=== PATIENT | male | born 1975 | race Caucasian/White ===

== ENCOUNTER 2016-07-25 10:26 | Emergency (ER) | payer OTHER, BC ==
--- NOTE | 2016-07-25 12:31 | ED NURSING NOTES ---
Clinical Report - Nurses [facility] [address] [place] [address] 07/25/2016 10:32 Patient: LEX MEDEROS TRIAGE Triage time 10:36. Acuity: LEVEL 4. Chief Complaint: INJURY TO THE LEFT LITTLE FINGER. Alert. No acute distress. MELECIO COMA SCORE: Melecio Coma Scale: 15- eyes open spontaneously (4); best verbal response- oriented x 4 (5); best motor response- obeys commands (6). --10:44 Shagufta Perkins R.N. 10:36 07/25/16. BP: 148/83. HR: 73. RR: 16. O2 saturation: 98% on room air. Temp: 97.6 F. Pain level now: 03/08. --10:44 Shagufta Perkins R.N. Weight: 90.7 kg stated. Height/Length: 77 inches Per Patient. BMI: 23.7. --10:39 Shagufta Perkins R.N. Medications Albuterol Sulfate HFA Inhalation. --10:37 Shagufta Perkins R.N. Flonase Nasal. --10:37 Shagufta Perkins R.N. Ibuprofen Oral. --10:37 Shagufta Perkins R.N. Medication/allergy information source: the patient. --10:44 Shagufta Perkins R.N. Allergies Theophylline. --10:38 Shagufta Perkins R.N. Vancomycin. --10:38 Shagufta Perkins R.N. History Arrived by private vehicle. Historian: patient. Unaccompanied. Primary physician (in [place]). The patient sustained a laceration from a sharp edge (on a boat). PAST MEDICAL HX: Tetanus status: more than 5 years ago. SOCIAL HX: Never smoker. Regular alcohol use. No drug use. FALL RISK ASSESSMENT: Fall risk assessment completed. No fall risk identified. FUNCTIONAL ASSESSMENT: Functional assessment: no impairments noted. LEARNING NEEDS ASSESSMENT: The learning needs assessment revealed no barriers. --10:44 Shagufta Perkins R.N. PROBLEMS: Asthma. Allergies. --10:39 Shagufta Perkins R.N. ADDITIONAL SURGERIES: Knee Surgery. Repair of chest. Wrist. --10:39 Shagufta Perkins R.N. Assessment GENERAL / NEURO / PSYCH: Alert. Oriented X 4. Appears in no acute distress. Patient appears calm and cooperative. RESPIRATORY: Respirations not labored. SKIN: Skin is warm and dry. --10:44 Shagufta Perkins R.N. Interventions ID and allergy band on patient. To treatment room. --10:44 Shagufta Perkins R.N. PHYSICAL ASSESSMENT 10:47 07/25/16. Ambulatory to room. GENERAL / NEURO / PSYCH: Oriented X 4. Alert. Appears in no acute distress. SKIN: Skin is warm and dry. Laceration; (per pt report). ( bleeding controlled with bandaid). --10:47 Shagufta Perkins R.N. NURSING PROGRESS NOTES 10:47 07/25/16. Call light placed in reach. Side rails up x 1. Bed placed in lowest position. Brakes of bed on. --10:47 Shagufta Perkins R.N. 12:28 07/25/16. Wound cleansed with sterile saline. --12:28 Shagufta Perkins R.N. 12:55. WOUND REPAIR: Preparation: suture tray set-up. Procedure: wound repaired with sutures. Post-procedure: he was stable, no complications, bleeding controlled and dressing applied. ( dressed with telfa pad and luis as directed by PA). --14:17 Shagufta Perkins R.N. 12:55. The patient is calm and resting quietly. Overall patient status is improved- he states feels better. GENERAL / NEURO / PSYCH: Alert. Oriented X 4. RESPIRATORY: No respiratory distress. SKIN: Skin is warm and dry. --14:18 Shagufta Perkins R.N. DISPOSITION / DISCHARGE Departure time: 1255. Condition at departure: improved and stable. No learning barriers present. Discharge instructions provided and reviewed with the patient. Reviewed medication(s). Prescription(s) given to the patient. Patient verbalized understanding. Written instructions provided in [place]. The patient was discharged home and unaccompanied at time of discharge. He left the Emergency Department ambulatory and via private vehicle. FALL RISK ASSESSMENT: Fall risk assessment completed. No fall risk identified. --13:17 Shagufta Perkins R.N. 13:16 07/25/16. BP: 139/80. HR: 50. RR: 16. O2 saturation: 99% on room air. Pain level now: 0/10. --13:17 Shagufta Perkins R.N. suture pack x1. --14:18 Shagufta Perkins R.N. Locked/Released at 07/25/2016 14:18 by Shagufta Perkins R.N.
--- NOTE | 2016-07-25 12:31 | ED CLINICAL REPORT ---
Clinical Report - Physicians/Mid Levels [facility] [address] [place] [address] 07/25/2016 10:32 [id number] Time Seen: 15:42 Jul 25 2016. Arrived- By private vehicle. Historian- patient. HISTORY OF PRESENT ILLNESS Chief Complaint: Injury to the left 5th (little) finger. No amputation noted. The injury happened just prior to arrival. Occurred at home. Patient is experiencing mild pain. ( Patient sustained a laceration last night from a sharp edge of a boat. patient reports bandage was placed on the area, however today he is concerned as he has to attend work, and there is a flap-like laceration present on his left fifth digit. Patient is right-hand dominant. 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 REVIEW OF SYSTEMS All systems otherwise negative, except as recorded above. PAST HISTORY The patient's dominant hand is the right. He has not had a prior injury to the same area. Tetanus immunization status is up-to-date. SOCIAL HISTORY Never smoker. Alcohol use. No drug use. ADDITIONAL NOTES The nursing notes have been reviewed. PHYSICAL EXAM Vital Signs: 07/25/2016 10:36 BP: 148/83. HR: 73. RR: 16. O2 saturation: 98%. Temp: 97.6 F. Pain level now: 1/10. Appearance: Alert. Head: Head atraumatic. Neck: Normal inspection. Neck supple. CVS: Normal heart rate and rhythm. Heart sounds normal. Respiratory: No respiratory distress. Breath sounds normal. Skin: Skin warm. Extremities: Left little finger: (ulnar lateral lac 1.5 cm , full distal rom/ flap like, no neurovascular compromise, no fb, no bleeding, no surrounding erythema, good flexion/ extension distally). Tip of left little finger: No tenderness or swelling. Soft tissue tenderness present. No bony tenderness. No signs of infection present. Neuro, Vascular and Tendons: Vascular status intact. Motor intact. Neuro: Oriented X 3. PROGRESS AND PROCEDURES Laceration Repair: Time: 1240. Location: (left 5th digit). Time-out completed immediately before the procedure. Length: 1.5cm. Complexity: simple (local anesthesia used and sutured). Wound depth/shape- curved and flap-like and involving fascia. Wound is clean. No sensory deficit or motor deficit distally. Anesthesia provided by digital block using 0.25% Marcaine. Wound explored, cleansed and irrigated. Subcutaneous closure: interrupted 5-0 (7, non absorb). Post-procedure: he is stable and there are no complications. Bleeding is controlled and neuro-vascular status is intact distal to the wound. Dressing applied. Tetanus immunization up-to-date. Course of Care: Patient with a laceration from a sharp object, no direct trauma, which was forceful in nature, suspicion for fracture is low. Patient with no signs of secondary infectious process. Patient with no signs of tendon or neurovascular compromise. Laceration repaired. Patient stable. To f/u outpatient as needed. 07/25/2016 13:16 BP: 139/80. HR: 50. RR: 16. O2 saturation: 99%. Pain level now: 0/10. Patient is stable. Symptoms better. Patient/family counseled. Disposition: Discharged. CLINICAL IMPRESSION Single deep laceration to the left little finger. INSTRUCTIONS Apply ice. Elevate affected areas above chest level. Protect wound and keep wound area clean. Apply bacitracin twice daily. Sutures should be removed in six days. OTC Medications: Take OTC medications according to label instructions. Available over the counter. Acetaminophen (available over the counter): take according to label instructions. Motrin (available over the counter): take according to label instructions. Follow-up: Follow up with your doctor in six days. (Electronically signed by Lisette Galeas P.A.-C 07/25/2016 15:46)
--- NOTE | 2016-07-25 12:31 | ED NURSING NOTES ---
Clinical Report - Nurses [facility] [address] [place] [address] 07/25/2016 10:32 Patient: LEX MEDEROS TRIAGE Triage time 10:36. Acuity: LEVEL 4. Chief Complaint: INJURY TO THE LEFT LITTLE FINGER. Alert. No acute distress. MELECIO COMA SCORE: Melecio Coma Scale: 15- eyes open spontaneously (4); best verbal response- oriented x 4 (5); best motor response- obeys commands (6). --10:44 Shagufta Perkins R.N. 10:36 07/25/16. BP: 148/83. HR: 73. RR: 16. O2 saturation: 98% on room air. Temp: 97.6 F. Pain level now: 03/08. --10:44 Shagufta Perkins R.N. Weight: 90.7 kg stated. Height/Length: 77 inches Per Patient. BMI: 23.7. --10:39 Shagufta Perkins R.N. Medications Albuterol Sulfate HFA Inhalation. --10:37 Shagufta Perkins R.N. Flonase Nasal. --10:37 Shagufta Perkins R.N. Ibuprofen Oral. --10:37 Shagufta Perkins R.N. Medication/allergy information source: the patient. --10:44 Shagufta Perkins R.N. Allergies Theophylline. --10:38 Shagufta Perkins R.N. Vancomycin. --10:38 Shagufta Perkins R.N. History Arrived by private vehicle. Historian: patient. Unaccompanied. Primary physician (in [place]). The patient sustained a laceration from a sharp edge (on a boat). PAST MEDICAL HX: Tetanus status: more than 5 years ago. SOCIAL HX: Never smoker. Regular alcohol use. No drug use. FALL RISK ASSESSMENT: Fall risk assessment completed. No fall risk identified. FUNCTIONAL ASSESSMENT: Functional assessment: no impairments noted. LEARNING NEEDS ASSESSMENT: The learning needs assessment revealed no barriers. --10:44 Shagufta Perkins R.N. PROBLEMS: Asthma. Allergies. --10:39 Shagufta Perkins R.N. ADDITIONAL SURGERIES: Knee Surgery. Repair of chest. Wrist. --10:39 Shagufta Perkins R.N. Assessment GENERAL / NEURO / PSYCH: Alert. Oriented X 4. Appears in no acute distress. Patient appears calm and cooperative. RESPIRATORY: Respirations not labored. SKIN: Skin is warm and dry. --10:44 Shagufta Perkins R.N. Interventions ID and allergy band on patient. To treatment room. --10:44 Shagufta Perkins R.N. PHYSICAL ASSESSMENT 10:47 07/25/16. Ambulatory to room. GENERAL / NEURO / PSYCH: Oriented X 4. Alert. Appears in no acute distress. SKIN: Skin is warm and dry. Laceration; (per pt report). ( bleeding controlled with bandaid). --10:47 Shagufta Perkins R.N. NURSING PROGRESS NOTES 10:47 07/25/16. Call light placed in reach. Side rails up x 1. Bed placed in lowest position. Brakes of bed on. --10:47 Shagufta Perkins R.N. 12:28 07/25/16. Wound cleansed with sterile saline. --12:28 Shagufta Perkins R.N. 12:55. WOUND REPAIR: Preparation: suture tray set-up. Procedure: wound repaired with sutures. Post-procedure: he was stable, no complications, bleeding controlled and dressing applied. ( dressed with telfa pad and luis as directed by PA). --14:17 Shagufta Perkins R.N. 12:55. The patient is calm and resting quietly. Overall patient status is improved- he states feels better. GENERAL / NEURO / PSYCH: Alert. Oriented X 4. RESPIRATORY: No respiratory distress. SKIN: Skin is warm and dry. --14:18 Shagufta Perkins R.N. DISPOSITION / DISCHARGE Departure time: 1255. Condition at departure: improved and stable. No learning barriers present. Discharge instructions provided and reviewed with the patient. Reviewed medication(s). Prescription(s) given to the patient. Patient verbalized understanding. Written instructions provided in [place]. The patient was discharged home and unaccompanied at time of discharge. He left the Emergency Department ambulatory and via private vehicle. FALL RISK ASSESSMENT: Fall risk assessment completed. No fall risk identified. --13:17 Shagufta Perkins R.N. 13:16 07/25/16. BP: 139/80. HR: 50. RR: 16. O2 saturation: 99% on room air. Pain level now: 0/10. --13:17 Shagufta Perkins R.N. suture pack x1. --14:18 Shagufta Perkins R.N. Locked/Released at 07/25/2016 14:18 by Shagufta Perkins R.N.
--- NOTE | 2016-07-25 15:47 | ED MED RECONCILIATION SUMMARY ---
Patient: LEX MEDEROS Medication Reconciliation Report [facility] VisitID: [id number] [address] [place] [address] 41y, M Registration Date/Time: 07/25/2016 Weight: 90.7 kg Height/Length: 77 in. BMI: 23.7 ALLERGIES: Theophylline, Vancomycin The patient's Home Medications are listed below: THE FOLLOWING MEDICATIONS NEED TO BE RECONCILED: Albuterol Sulfate HFA Inhalation Flonase Nasal Ibuprofen Oral The source(s) of the original Home Medication information: patient The following Medications were given to the patient in the Emergency Department: None. The following Medications were prescribed to the patient: Take OTC medications according to label instructions. Available over the counter. -- Lisette Galeas, P.A.-C Acetaminophen (available over the counter): take according to label instructions. -- Lisette Galeas, P.A.-C Motrin (available over the counter): take according to label instructions. -- Lisette Galeas, P.A.-C
--- NOTE | 2016-07-25 15:47 | ED MED RECONCILIATION SUMMARY ---
Patient: LEX MEDEROS Medication Reconciliation Report [facility] VisitID: [id number] [address] [place] [address] 41y, M Registration Date/Time: 07/25/2016 Weight: 90.7 kg Height/Length: 77 in. BMI: 23.7 ALLERGIES: Theophylline, Vancomycin The patient's Home Medications are listed below: THE FOLLOWING MEDICATIONS NEED TO BE RECONCILED: Albuterol Sulfate HFA Inhalation Flonase Nasal Ibuprofen Oral The source(s) of the original Home Medication information: patient The following Medications were given to the patient in the Emergency Department: None. The following Medications were prescribed to the patient: Take OTC medications according to label instructions. Available over the counter. -- Lisette Galeas, P.A.-C Acetaminophen (available over the counter): take according to label instructions. -- Lisette Galeas, P.A.-C Motrin (available over the counter): take according to label instructions. -- Lisette Galeas, P.A.-C
--- NOTE | 2016-07-25 15:47 | ED MAR SUMMARY ---
..... Medication Administration Record [facility] [address], [place] [id number] Patient: LEX MEDEROS Visit ID: [id number] 41y, M Weight: 90.7 kg Height/Length: 77 in BMI: 23.7 ALLERGIES: Vancomycin, Theophylline
--- NOTE | 2016-07-25 15:47 | ED MAR SUMMARY ---
..... Medication Administration Record [facility] [address] [place], [place] [id number] Patient: LEX MEDEROS Visit ID: [id number] 41y, M Weight: 90.7 kg Height/Length: 77 in BMI: 23.7 ALLERGIES: Vancomycin, Theophylline
--- NOTE | 2016-07-25 15:47 | ED DISCHARGE INSTRUCTIONS ---
Patient: LEX MEDEROS General Instructions [facility] VisitID: [id number] [place] [address] 41y, M Registration Date/Time: 07/25/2016 Single deep laceration to the left little finger. INSTRUCTIONS Apply ice. Elevate affected areas above chest level. Protect wound and keep wound area clean. Apply bacitracin twice daily. Sutures should be removed in six days. OTC Medications: Take OTC medications according to label instructions. Available over the counter. Acetaminophen (available over the counter): take according to label instructions. Motrin (available over the counter): take according to label instructions. Follow-up: Follow up with your doctor in six days. ADDITIONAL INFORMATION Laceration, Extremity (Sutures, [place], Or Tape) A laceration is a cut through the skin. This will usually require stitches (sutures) or rasta if it is deep. Minor cuts may be treated with surgical tape closures. Home care The following guidelines will help you care for your laceration at home: Keep the wound clean and dry. If a bandage was applied and it becomes wet or dirty, replace it. Otherwise, leave it in place for the first 24 hours, then change it once a day or as directed. If stitches or rasta were used, clean the wound daily: After removing the bandage, wash the area with soap and water. Use a wet cotton swab to loosen and remove any blood or crust that forms. After cleaning, keep the wound clean and dry. Talk with your doctor before applying any antibiotic ointment to the wound. Reapply the bandage. You may remove the bandage to shower as usual after the first 24 hours, but do not soak the area in water (no swimming) until the stitches or rasta are removed. If surgical tape closures were used, keep the area clean and dry. If it becomes wet, blot it dry with a towel. The doctor may prescribe an antibiotic cream or ointment to prevent infection. Do not stop taking this medication until you have finished the prescribed course or the doctor tells you to stop. The doctor may also prescribe medications for pain. Follow the doctors instructions for taking these medications. If you have chronic liver or kidney disease or ever had a stomach ulcer or GI bleeding, talk with your doctor before using these medicines. Follow-up care Follow up with your health care provider. Most skin wounds heal within ten days. However, an infection may sometimes occur despite proper treatment. Therefore, check the wound daily for the signs of infection listed below. Stitches and rasta should be removed within 714 days. If surgical tape closures were used, you may remove them after 10 days, if they have not fallen off by then. Notify your doctor if you notice persistent numbness or weakness in the injured extremity. (Note:A radiologist will review any X-rays that were taken. We will notify you of any new findings that may affect your care.) When to seek medical care Get prompt medical attention if any of these occur: Increasing pain in the wound Redness, swelling, or pus coming from the wound Fever of 100.4F (38C) or higher, or as directed by your health care provider If stitches or rasta come apart or fall out before your next appointment If the surgical tape closures fall off within seven days, or the wound edges re-open Bleeding not controlled by direct pressure Laceration: Will There Be A Scar? A laceration is a cut through one or more layers of the skin. The goal of emergency treatment is to clean the wound and close it to prevent infection, control bleeding and speed healing. Cuts heal because the body is able to repair the skin by "sealing" the edges together with collagen, a kind of "skin cement." How deep your cut is, its location on your body, your age and the way your skin heals all determine how visible the final scar will be. Some persons tend to heal with more scar tissue than others. This cut will probably heal similar to other cuts you have had in the past. What You Can Do: There are a few simple things that you can do to limit the amount of scar that forms: 1) PREVENT INFECTION: An infected wound makes a bigger scar. Keep the wound clean and dry. Change the dressing and apply any ointment/cream as directed. 2) MASSAGE THE WOUND:After the stitches have been removed: Use a moisturizing cream or lotion containing Aloe or Vitamin E Oil and gently massage the skin around the wound with your fingertips (wash your hands first!). Do this twice a day for the first two weeks, then once a day for a month. This will increase the flow of oxygen and blood to the wound and prevent excess scar tissue from building up. 3) AVOID SUN EXPOSURE: During the first six months, avoid sun exposure since the scar may funes a much darker color than the skin around it. When in the sun, use SPF #50 (or greater) sun block on the scar, or cover the area with a hat or clothing. What To Expect: -- The cut will be sealed within 2 days and will be strong within 5-10 days. However, it will take at least SIX MONTHS for it to be fully healed. -- During the FIRST THREE MONTHS, you may notice the scar line getting more red or purple in color. The scar may become raised. The skin around the wound may feel thick and lumpy. -- During the FOURTH TO SIXTH MONTHS, this process begins to reverse. The red and purple color will fade, the scar line flattens, and the skin around it feels more normal. -- In most cases, the way the scar line looks after six months is the way it will remain, although there may be some continued improvement up to one year after the injury. Is There Anything Else That Can Be Done? If you do not like the way the scar looks after six months, a plastic surgeon may be able to perform a "scar revision." If you have any questions or problems as your wound heals, contact your doctor or this facility. We will be glad to assist you. You have been given the following additional information: Laceration, Extrem (Suture, Staple, Or Tape) Laceration, How To Minimize Scar (Electronically signed by Lisette Galeas P.A.-C 07/25/2016 15:46)
== END 2016-07-25 12:55 | disposition home or self-care (01) ==
LOC: ED SRH 10:26
DX: S61.215A Laceration without foreign body of left ring finger without damage to nail, initial encounter (principal); W26.9XXA Contact with unspecified sharp object(s), initial encounter; Y93.9 Activity, unspecified; Y99.9 Unspecified external cause status; Y92.814 Boat as the place of occurrence of the external cause